=== PATIENT | male | born 1960 | race African-American/Black ===

== ENCOUNTER 2020-05-13 20:05 | Inpatient (IN) | payer MEDICARE, MEDICAID ==
[~2020-05-13] VITALS: Ht 177.8 cm; Wt 60.6 kg
[2020-05-13 20:05] VITALS: BP 77/65; BMI 19.0
[2020-05-13 20:29] VITALS: BP 91/70
[2020-05-13 21:00] VITALS: BP 102/73
[2020-05-13 21:18] LABS: APTT 26.2 SECONDS (22.8-39.4); INR 1.08 (0.85-1.17)
[2020-05-13 21:19] LABS: CALC OSMOLALITY 272 mosm/kg (275-300); CALCIUM 8.1 mg/dL (8.5-10.1); CHLORIDE - SERUM 103 mmol/L (98-107); CREATININE - SERUM 0.7 mg/dL (0.6-1.3); GLUCOSE 93 mg/dL (74-106); POTASSIUM - SERUM 3.6 mmol/L (3.5-5.1); SODIUM 137 mmol/L (136-145); UREA NITROGEN 11 mg/dL (7-18); eGFR NON AFRICAN AMERICAN > 90 mL/min (90-120)
[2020-05-13 21:26] LABS: ALBUMIN 2.1 g/dL (3.4-5.0); ALKALINE PHOSPHATASE 74 U/L (30-120); ALT (SGPT) 71 U/L (10-68); BILIRUBIN - TOTAL 0.82 mg/dL (0.2-1.3); PHOSPHOROUS 2.4 mg/dL (2.5-4.9); PROTEIN - SERUM 6.1 g/dL (6.4-8.2)
[2020-05-13 21:33] LABS: BASOPHILS 0.1 % (0-2); EOSINOPHILS 0.1 % (0-7); HEMOGLOBIN 10.5 g/dL (13.5-17.5); IMMATURE GRANULOCYTES 1.3 % (0-5); LYMPHOCYTES 13.1 % (15-50); MCH 26.6 pg (26.0-34.0); MCHC 32.8 g/dL (31.0-37.0); MEAN PLATELET VOLUME 8.8 fL (7.4-10.4); MONOCYTES 7.7 % (2-11); NEUTROPHILS 77.7 % (40-80); PLATELET COUNT 329 10x3/uL (130-400); RBC 3.95 10x6/uL (4.20-6.10); RDW 19.2 % (11.5-14.5); WBC 14.4 10x3/uL (4.8-10.8)
[2020-05-13 22:00] VITALS: BP 86/64
[2020-05-13 23:00] VITALS: BP 117/77
--- NOTE | 2020-05-13 23:27 | NUR ---
16F SILVER PLACED AND PATIENT TOLERATED WELL. IMMEDIATE RETURN OF JERALD URINE APPROX 500ML. SILVER PLACED TO GRAVITY DRAIN AND UA COLLECTED FOR LAB.
[2020-05-13 23:44] LABS: BILIRUBIN NEGATIVE (NEGATIVE); GLUCOSE NEGATIVE (NEGATIVE); KETONE NEGATIVE (NEGATIVE); NITRITE NEGATIVE (NEGATIVE); UROBILINOGEN NORMAL (NORMAL)
[2020-05-14] VITALS (24 sets, daily range): BP systolic 97–132; BP diastolic 64–91; BMI 19.2
[2020-05-14 04:36] LABS: BASOPHILS 0 % (0-2); EOSINOPHILS 0 % (0-7); HEMATOCRIT 34.2 % (42.0-54.0); HEMOGLOBIN 11.3 g/dL (13.5-17.5); IMMATURE GRANULOCYTES 0.7 % (0-5); LYMPHOCYTES 4.5 % (15-50); MCH 26.5 pg (26.0-34.0); MCV 80.1 fL (80.0-100.0); MEAN PLATELET VOLUME 8.5 fL (7.4-10.4); MONOCYTES 1.8 % (2-11); PLATELET COUNT 283 10x3/uL (130-400); RBC 4.27 10x6/uL (4.20-6.10); RDW 19.4 % (11.5-14.5); WBC 14.7 10x3/uL (4.8-10.8)
[2020-05-14 05:03] LABS: ALBUMIN 2.1 g/dL (3.4-5.0); ALKALINE PHOSPHATASE 75 U/L (30-120); ALT (SGPT) 64 U/L (10-68); BILIRUBIN - TOTAL 0.75 mg/dL (0.2-1.3); CARBON DIOXIDE 25.4 mmol/L (21.0-32.0); CHLORIDE - SERUM 103 mmol/L (98-107); CREATININE - SERUM 0.7 mg/dL (0.6-1.3); PHOSPHOROUS 2.2 mg/dL (2.5-4.9); PROTEIN - SERUM 6.1 g/dL (6.4-8.2); SODIUM 135 mmol/L (136-145); eGFR NON AFRICAN AMERICAN > 90 mL/min (90-120)
[2020-05-14 05:04] LABS: CALC OSMOLALITY 270 mosm/kg (275-300); GLUCOSE 156 mg/dL (74-106); POTASSIUM - SERUM 4.2 mmol/L (3.5-5.1); UREA NITROGEN 8 mg/dL (7-18)
--- NOTE | 2020-05-14 07:00 | NUR ---
07OO REPORT RECEIVED ASSESSMENT COMPLETE
--- NOTE | 2020-05-14 09:00 | NUR ---
0900 PROPOFOL INFUSING AT 15MCG/KG/MIN
--- NOTE | 2020-05-14 11:00 | NUR ---
REASSESSMENT COMPLETE, NO CHANGES NOTED, VSS, WILL CON'T TO MONITOR
--- NOTE | 2020-05-14 13:00 | NUR ---
REPOSITIONED FOR COMFORT, ORAL CARE PROVIDED
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
--- NOTE | 2020-05-14 15:00 | NUR ---
REASSESSMENT COMPLETE, NO CHANGES NOTED, VSS,
--- NOTE | 2020-05-14 17:00 | NUR ---
PT RESTING COMFORTABLY AT THIS TIME, NO NEEDS NOTED
[2020-05-15] VITALS (24 sets, daily range): BP systolic 103–128; BP diastolic 50–90; Ht 177.8 cm; Wt 60.6 kg
[2020-05-15 04:01] LABS: BASOPHILS 0 % (0-2); EOSINOPHILS 0 % (0-7); HEMATOCRIT 32.3 % (42.0-54.0); HEMOGLOBIN 10.6 g/dL (13.5-17.5); IMMATURE GRANULOCYTES 0.7 % (0-5); LYMPHOCYTES 4.9 % (15-50); MCH 26.6 pg (26.0-34.0); MCHC 32.8 g/dL (31.0-37.0); MCV 81.2 fL (80.0-100.0); MEAN PLATELET VOLUME 8.6 fL (7.4-10.4); MONOCYTES 3.1 % (2-11); NEUTROPHILS 91.3 % (40-80); PLATELET COUNT 291 10x3/uL (130-400); RBC 3.98 10x6/uL (4.20-6.10); RDW 19.5 % (11.5-14.5)
[2020-05-15 04:03] LABS: WBC 18.4 10x3/uL (4.8-10.8)
[2020-05-15 04:09] LABS: ALKALINE PHOSPHATASE 72 U/L (30-120); ALT (SGPT) 51 U/L (10-68); BILIRUBIN - TOTAL 0.54 mg/dL (0.2-1.3); CALC OSMOLALITY 275 mosm/kg (275-300); CALCIUM 7.7 mg/dL (8.5-10.1); CARBON DIOXIDE 26.4 mmol/L (21.0-32.0); CHLORIDE - SERUM 106 mmol/L (98-107); CREATININE - SERUM 0.6 mg/dL (0.6-1.3); GLUCOSE 139 mg/dL (74-106); MAGNESIUM - SERUM 2.3 mg/dL (1.8-2.4); PHOSPHOROUS 2.2 mg/dL (2.5-4.9); POTASSIUM - SERUM 3.8 mmol/L (3.5-5.1); PROTEIN - SERUM 6.1 g/dL (6.4-8.2); SODIUM 138 mmol/L (136-145); UREA NITROGEN 7 mg/dL (7-18); eGFR NON AFRICAN AMERICAN > 90 mL/min (90-120)
--- NOTE | 2020-05-15 07:00 | NUR ---
REPORT RECIEVED, SHIFT ASSESSMENT COMPLETE, PT IS SEDATED ON VENT, FOLLOWS COMMANDS, ON 40% FIO2 WITH 97% O2 SAT. ALL PPP, VSS, WILL CON'T TO MONITOR
--- NOTE | 2020-05-15 09:15 | NUR ---
0900 MEDS ADM WITHOUT DIFFICULTY VSS. NO NEW CAHNGES WILL CNOTINUE TO MONITOR
--- NOTE | 2020-05-15 10:53 | NUR ---
Nutrition follow-up: Intubated; bronch today Remains NPO Wt: 130# Will need nutrition support started today if unable to extubate Recommend Pulmocare @ 20 ml/hr with increase to goal rate of 40 ml/hr RDN following.
--- NOTE | 2020-05-15 11:20 | NUR ---
REASSESSMENT COMPLETE PER FLOW SHEET. VSS. PT RESTING COMFORTABLY WILL CONTINUE TO MONITOR
--- NOTE | 2020-05-15 13:15 | NUR ---
ORAL ENDOTRACH CARE ADM. REPOSITIONED FOR COMFORT. WILL CONTINUE TO MONITOR
--- NOTE | 2020-05-15 14:44 | NUR ---
PT EXTUBATED AT THIS TIME TO 2L NC WITH 97% O2 SAT. PT TOLERATED WELL
--- NOTE | 2020-05-15 15:00 | NUR ---
REASSESSMENT COMPELTE PER FLOW SHEET VSS. WILL CONTINUE TO MONITOR
--- NOTE | 2020-05-15 17:00 | NUR ---
NURSING BEDSIDE SWALLOW ADM. PT TOLERATED WELL. REGULAR DIET ORDERED
[2020-05-16] VITALS (21 sets, daily range): BP systolic 114–162; BP diastolic 74–100
--- NOTE | 2020-05-16 02:02 | NUR ---
SANDWICH TRAY AND ICE CREAM PROVIDED PER PT REQUEST, DENIES ANY OTHER NEEDS AT THIS TIME.
--- NOTE | 2020-05-16 03:00 | NUR ---
REASSESSMENT PER FLOWSHEET, PT DENIES ANY NEEDS AT THIS TIME, VSS.
[2020-05-16 03:53] LABS: BASOPHILS 0 % (0-2); EOSINOPHILS 0 % (0-7); HEMATOCRIT 34.2 % (42.0-54.0); HEMOGLOBIN 11.1 g/dL (13.5-17.5); IMMATURE GRANULOCYTES 0.9 % (0-5); MCH 26.6 pg (26.0-34.0); MCHC 32.5 g/dL (31.0-37.0); MONOCYTES 3.5 % (2-11); NEUTROPHILS 91.6 % (40-80); PLATELET COUNT 282 10x3/uL (130-400); RBC 4.17 10x6/uL (4.20-6.10); RDW 19.7 % (11.5-14.5); WBC 18.6 10x3/uL (4.8-10.8)
[2020-05-16 04:28] LABS: ALBUMIN 2.1 g/dL (3.4-5.0); ALKALINE PHOSPHATASE 71 U/L (30-120); ALT (SGPT) 50 U/L (10-68); BILIRUBIN - TOTAL 0.41 mg/dL (0.2-1.3); CALCIUM 7.7 mg/dL (8.5-10.1); CARBON DIOXIDE 27.8 mmol/L (21.0-32.0); CHLORIDE - SERUM 107 mmol/L (98-107); CREATININE - SERUM 0.7 mg/dL (0.6-1.3); GLUCOSE 178 mg/dL (74-106); MAGNESIUM - SERUM 2.6 mg/dL (1.8-2.4); POTASSIUM - SERUM 3.7 mmol/L (3.5-5.1); PROTEIN - SERUM 6.2 g/dL (6.4-8.2); SODIUM 139 mmol/L (136-145); eGFR NON AFRICAN AMERICAN > 90 mL/min (90-120)
[2020-05-16 04:29] LABS: CALC OSMOLALITY 280 mosm/kg (275-300); PHOSPHOROUS 1.3 mg/dL (2.5-4.9); UREA NITROGEN 10 mg/dL (7-18)
--- NOTE | 2020-05-16 05:43 | NUR ---
2 PACKETS OF NEUTRA-PHOS INITIATED TO TREAT PHOS OF 1.3 ON AM LAB PER ELECTROLYTE PROTOCOL.
--- NOTE | 2020-05-16 07:30 | NUR ---
PT SITTING UP IN BED AWAKE AT THIS TIME. PT ALERT AND ORIENTED. DENIES ANY NEEDS. VSS. WILL CONTINUE PLAN OF CARE.
[2020-05-16 08:24] LABS: HEMATOCRIT 34.5 % (42.0-54.0); HEMOGLOBIN 11.4 g/dL (13.5-17.5)
--- NOTE | 2020-05-16 08:30 | NUR ---
DR STEPHENS NOTIFIED OF ABG RESULTS. NO NEW ORDERS RECIEVED.
--- NOTE | 2020-05-16 08:42 | NUR ---
IV TO RT FOREARM NOTED TENDER WHEN FLUSHED PER PT. IV DCD AT THIS TIME, CATHETER TIP INTACT. IV TO RT AC STILL FLUSHES WELL.
--- NOTE | 2020-05-16 10:06 | NUR ---
SPOKE WITH PTS FAMILY. UPDATES PROVIDED.
--- NOTE | 2020-05-16 10:27 | NUR ---
PER DR WREN, TRANSFER PT TO FLOOR.
--- NOTE | 2020-05-16 11:55 | NUR ---
REPORT CALLED TO RECIEVING NURSE. WILL TRANSFER PT SHORTLY.
--- NOTE | 2020-05-16 12:07 | NUR ---
PER DR WREN, KEEP PT IN ICU.
--- NOTE | 2020-05-16 12:29 | NUR ---
NO CALLBACK FROM CARDIOLOGY NOTED. ONE TIME DOSE METOPROLOL ADMIN PER DR OSMAN. PT CONVERTED TO 83 SINUS WITH PVS WITH SOME RUNS OF 1:1 AND 2:1 SINUS/PVC BIJIMENY. DR OSMAN AT BEDSIDE AND AWARE OF THIS CHANGE. NO NEW ORDERS RECIEVED. ALSO ADVACED NGT PER DR OSMAN ORDERS. PLACEMENT VERIFIED VIA AUSCULTATION. PT CURRENTLY ON CPAP TRIAL. FOLLOWS COMMANDS. WILL CONTINUE TO OBSERVE.
--- NOTE | 2020-05-16 14:28 | NUR ---
LARGE CONTINENT BOWEL MOVEMENT, SOFT BROWN, NOTED TO BEDSIDE TOILET. TOTAL LINEN CHANGE PROVIDED. CHG BATH PROVIDED. VSS. NO ACUTE DISTRESS NOTED. WILL CONTINUE PLAN OF CARE.
--- NOTE | 2020-05-16 15:06 | NUR ---
SPOKE WITH PTS FAMILY. UPDATES PROVIDED.
--- NOTE | 2020-05-16 17:29 | NUR ---
SITTING UP IN BED AWAKE AT THIS TIME EATING SUPPER. DENIES ANY NEEDS. VSS. STILL WHEEZING WITH BREATHING, PHYSICIANS ARE AWARE. WILL CONTINUE PLAN OF CARE.
--- NOTE | 2020-05-16 17:42 | NUR ---
PER DR DICK, [facility] IN [place] WAS CONTACTED FOR MEDICAL RECORDS. RECIEVED FAX, PLACED IN CHART.
--- NOTE | 2020-05-16 19:00 | NUR ---
PATIENT RESTING IN BED EATING. NO S/S OF ACUTE DISTRESS. NO C/O AT THIS TIME. PATIENT HAS A RIGHT AC, SALINE LOC. IV IS PATENT WITHOUT REDNESS, SWELLING, OR TENDERNESS. PATIENT ALSO HAS A RIGHT CHEST PORT FROM CHEMO TREATMENTS THAT HE WAS GETTING BEFORE HE CAME TO THE HOSPITAL. PATIENT HAS BAD WHEEZING, DR. STEPHENS ALREADY KNOW ABOUT THIS AND STATED IT WAS BECAUSE OF A TUMOR. PATIENT HAS A DRY HACKING COUGH. PATIENT HAS A FLUTTER RYTHM ON THE MONITOR. CALL LIGHT WITHIN REACH. WILL CONTINUE TO MONITOR.
--- NOTE | 2020-05-16 21:00 | NUR ---
PATIENT RESTING IN BED. NO S/S OF ACUTE DISTRESS. NO C/O AT THIS TIME. PATIENT'S VITALS ARE STABLE. PATIENT STILL HAS IV IN RIGHT AC, NORMAL SALINE @ 10ML/HR. IV IS PATENT WITHOUT REDNESS, SWELLING, OR TENDERNESS. CALL LIGHT WITHIN REACH. WILL CONTINUE TO MONITOR.
--- NOTE | 2020-05-16 23:00 | NUR ---
PATIENT RESTING IN BED. NO S/S OF ACUTE DISTRESS. NO C/O AT THIS TIME. PATIENT STILL HAS RIGHT AC IV, STILL PATENT WITHOUT REDNESS, SWELLING, OR TENDERNESS. PATIENT'S BLOOD PRESSURE IS HIGH 162/100. AFTER TAKING IT MULTIPLE TIMES AND READJUSTING THE CUFF THE BP:D STAYED AROUND 99-102. I CALLED CECILE REY, HE PRESCRIBED APRESOLINE 10 MG IV. ONCE IT IS VERIFIED WITH PHARMACY I WILL GET AN RN TO PUSH IT FOR ME. CALL LIGHT WITHIN REACH. WILL CONTINUE TO MONITOR.
[2020-05-17] VITALS (17 sets, daily range): BP systolic 110–157; BP diastolic 66–100
--- NOTE | 2020-05-17 01:10 | NUR ---
PATIENT SITTING UP ON SIDE OF BED. NO S/S OF ACUTE DISTRESS. NO C/O AT THIS TIME. PATIENT IS ON 1L OF O2 NASAL CANNULA. PATIENT STILL HAS IV, NORMAL SALINE @ 10 ML/HR. IV IS PATENT WITHOUT REDENESS, SWELLING, OR TENDERNESS. PATIENT HAD A BOWEL MOVEMENT, LOOSE AND WATERY. PATIENT WANTS TO SIT UP ON SIDE OF BED UNTIL HIS BREATHING TREATMENT IS DONE. CALL LIGHT WITHIN REACH. WILL CONTINUE TO MONITOR.
--- NOTE | 2020-05-17 01:57 | NUR ---
PATIENT'S HEART RATE AFTER GETTING UP TO BEDSIDE COMMODE WAS HIGH 100-146 BPM. PATIENT WAS COUGHING THOUGH AND BEATING HIS BACK "TO HELP THE MUCOUS UP". PATIENT WAS ASYMPTOMATIC AND WHEN NOT COUGHING HEART RATE WOULD DROP BACK DOWN INTO HIGH 80S AND LOW 90S. WILL CALL IF PATIENT CONTINUES TO COUGH AND HEART RATE CONTINUES TO STAY HIGH.
--- NOTE | 2020-05-17 03:00 | NUR ---
PATIENT RESTING IN BED WITH EYES CLOSED. NO S/S OF ACUTE DISTRESS. NO C/O AT THIS TIME. PATIENT HEART RATE HAS SLOWED AND STAYED IN THE 90S. VITALS ARE STABLE. CALL LIGHT WITHIN REACH. WILL CONTINUE TO MONITOR.
--- NOTE | 2020-05-17 06:00 | NUR ---
PATIENT RESTING IN BED WITH EYES CLOSED. NO S/S OF ACUTE DISTRESS. NO C/O AT THIS TIME. PATIENT'S VITALS ARE STABLE. CALL LIGHT WITHIN REACH. WILL CONTINUE TO MONITOR.
[2020-05-17 08:19] LABS: HEMATOCRIT 37.1 % (42.0-54.0); HEMOGLOBIN 12.2 g/dL (13.5-17.5); MCH 26.6 pg (26.0-34.0); MCHC 32.9 g/dL (31.0-37.0); MCV 80.8 fL (80.0-100.0); MEAN PLATELET VOLUME 8.7 fL (7.4-10.4); PLATELET COUNT 282 10x3/uL (130-400); RBC 4.59 10x6/uL (4.20-6.10); RDW 19.7 % (11.5-14.5)
[2020-05-17 08:30] LABS: ALBUMIN 2.3 g/dL (3.4-5.0); ALKALINE PHOSPHATASE 84 U/L (30-120); BILIRUBIN - TOTAL 0.62 mg/dL (0.2-1.3); CALCIUM 8.2 mg/dL (8.5-10.1); CARBON DIOXIDE 28.3 mmol/L (21.0-32.0); CHLORIDE - SERUM 105 mmol/L (98-107); CREATININE - SERUM 0.6 mg/dL (0.6-1.3); MAGNESIUM - SERUM 2.5 mg/dL (1.8-2.4); POTASSIUM - SERUM 4.1 mmol/L (3.5-5.1); PROTEIN - SERUM 6.7 g/dL (6.4-8.2); SODIUM 140 mmol/L (136-145); UREA NITROGEN 9 mg/dL (7-18); VANCOMYCIN - TROUGH 8.3 ug/mL (10.0-20.0); eGFR NON AFRICAN AMERICAN > 90 mL/min (90-120)
[2020-05-17 08:31] LABS: ALT (SGPT) 89 U/L (10-68); CALC OSMOLALITY 279 mosm/kg (275-300); GLUCOSE 128 mg/dL (74-106)
--- NOTE | 2020-05-17 08:33 | NUR ---
SITTING UP IN BED EATING BREAKFAST AT THIS TIME. VSS. NO ACUTE DISTRESS NOTED. PT DENIES ANY NEEDS. WILL CONTINUE PLAN OF CARE.
[2020-05-17 09:29] LABS: LYMPHOCYTES 6 % (15-50); MONOCYTES 1 % (2-11); NEUTROPHILS 93 % (40-80)
[2020-05-17 09:30] LABS: PLATELET ESTIMATE NORMAL
--- NOTE | 2020-05-17 10:21 | NUR ---
350ML URINE NOTED TO URINAL. PT PROVIDED OWN BERNARDO CARE.
--- NOTE | 2020-05-17 11:40 | NUR ---
SPOKE WITH PTS FAMILY. UPDATES PROVIDED.
--- NOTE | 2020-05-17 11:40 | NUR ---
WILL ADMIN SCHEDULED IV MEDS WHEN OBTAIN IV ACCESS. RT AC NOTED NO LONGER PATENT AND HAD BEEN PULLED OUT. CATHETER TIP INTACT. WILL PAGE DR DICK TO SEE IF OKAY TO ACCESS PORT.
--- NOTE | 2020-05-17 11:44 | NUR ---
PER LOPEZ STOKES TO ACCESS PORT.
--- NOTE | 2020-05-17 11:52 | NUR ---
PER PHYSICIAN ORDERS, CALLED TRANSFER CENTER FOR PT TO TRANSFER TO [facility]. SPOKE WITH PRICE AT THE TRANSFER CENTER. FACESHEET FAXED TO TRANSFER CENTER. WILL WAIT FOR CALLBACK.
--- NOTE | 2020-05-17 12:10 | NUR ---
RT CHEST PORT ACCESSED AT THIS TIME APPROVED BY DR DICK. 20G 0.75 IN. BLOOD DRAWS WELL, FLUSHES WELL. SITE DRESSED AND DATED.
--- NOTE | 2020-05-17 14:17 | NUR ---
PER DR RUBIO, OKAY TO TRANSFER PT TO FLOOR.
--- NOTE | 2020-05-17 14:20 | NUR ---
NOTIFIED TRANSFER CENTER THAT PT HAS ORDERS TO TRANSFER TO THE FLOOR. THEY STATED THEY WOULD NOTIFY [facility] OF THIS SINCE THEY HAVE A FLOOR BED AVALIABLE. VSS. NO ACUTE DISTRESS NOTED. WILL CONTINUE PLAN OF CARE.
--- NOTE | 2020-05-17 14:40 | NUR ---
SPOKE WITH PTS FAMILY. UPDATES PROVIDED.
--- NOTE | 2020-05-17 16:42 | NUR ---
PER TRANSFER CENTER, [facility] REQUESTS BRONCHOSCPY IMAGES. NOTED WE ARE UNABLE TO OBTAIN THESE IMAGES PER RESPIRTORY THERAPY, BUT WILL BE ABLE TO TOMORROW. TRANSFER CENTER NOTIFIED OF THIS.
--- NOTE | 2020-05-17 18:00 | NUR ---
PER CECILE REY, TRANSFER CENTER SAID THAT PT NEEDS TO RECIEVE A DOSE OF KEPPRA BEFORE TRANSFER TO [facility]. WILL ADMIN ORDER NOW.
--- NOTE | 2020-05-17 18:32 | NUR ---
PER TRANSFER C[facility], PT HAS BEEN ACCEPTED, WILL GO TO ROOM [id number], ACCEPTING PHYSICIAN IS DR. LESTER. NUMBER TO CALL REPORT IS [phone]. WILL CALL REPORT NOW.
--- NOTE | 2020-05-17 18:35 | NUR ---
ATTEMPTED TO CALL REPORT FOR PT TO TRANSFER, PER STAFF THEY ARE IN THE MIDDLE OF REPORT AND STATED THEY WILL CALL BACK WHEN THEY ARE ABLE TO RECIEVE REPORT.
--- NOTE | 2020-05-17 19:12 | NUR ---
RECIEVED CALLBACK FROM COLLETTE MARTIN RN, AT [facility]. REPORT CALLED TO COLLETTE. WILL TRANSFER PT SHORTLY.
--- NOTE | 2020-05-17 20:03 | NUR ---
CALLED TRANSFER CENTER TO NOTIFY FOR AMBULANCE. TRANSFER CENTER STATED THEY WOULD NOTIFY EMS ETA.
--- NOTE | 2020-05-17 20:18 | NUR ---
PER EMS, IT WILL BE ABOUT 1-2 HOURS BEFORE [facility] WILL ARRIVE TO TRANSPORT PT.
--- NOTE | 2020-05-17 23:52 | NUR ---
2330 EMS TRANSPORTATION HERE TO TAKE PT TO [facility]. FAMILY NOTIFIED PER PT REQUEST.
== END 2020-05-17 22:40 | disposition short-term general hospital (02) | DRG 208 ==
LOC: D.ICU 20:05
PROVIDERS: Emergency Medicine; ADMIT Family Medicine; ATTEND Family Medicine
PROC: 5A1945Z Respiratory Ventilation, 24-96 Consecutive Hours (ICD-10-PCS; 2020-05-13)
PROC: 0B978ZZ Drainage of Left Main Bronchus, Via Natural or Artificial Opening Endoscopic (ICD-10-PCS; principal; 2020-05-15)
DX: J18.9 Pneumonia, unspecified organism (principal); G93.6 Cerebral edema; J96.01 Acute respiratory failure with hypoxia; C34.90 Malignant neoplasm of unspecified part of unspecified bronchus or lung; C78.7 Secondary malignant neoplasm of liver and intrahepatic bile duct; C79.31 Secondary malignant neoplasm of brain; E87.1 Hypo-osmolality and hyponatremia; J44.1 Chronic obstructive pulmonary disease with (acute) exacerbation; E78.5 Hyperlipidemia, unspecified; I10 Essential (primary) hypertension; E87.6 Hypokalemia; D64.9 Anemia, unspecified; Z87.891 Personal history of nicotine dependence